=== PATIENT | male | born 1980 | race African-American/Black ===

== ENCOUNTER 2025-02-08 19:14 | Inpatient (IN) | payer MEDICARE, MEDICAID ==
[~2025-02-08] VITALS: Ht 170.2 cm; Wt 122.2 kg
[~2025-02-08 19:14] MED LIST: ATEN-73 PO; DIVA-159 PO; FAMO20 PO; GEMF600T PO; LURA80TA2 PO; SIMV-260 PO; TAMS0.4C94 PO; TOPI-257 PO
[2025-02-08 19:45] LABS: COVID AG,FIA SOURCE NASAL SWAB
[2025-02-08 19:47] LABS: BASOPHILS % (AUTO) 0.6 % (0.0-2.0); EOSINOPHILS % (AUTO) 1.9 % (1.0-6.0); HEMATOCRIT 41.3 % (41-53); HEMOGLOBIN 14.1 g/dL (13.5-17.5); LYMPHOCYTES # (AUTO) 2.4 K/uL (1.0-4.8); LYMPHOCYTES % (AUTO) 23.1 % (22.0-44.0); MEAN CORPUSCULAR HEMOGLOBIN 26.6 pg (26.0-34.0); MEAN CORPUSCULAR HGB CONC 34.1 G/dL (31.0-37.0); MEAN CORPUSCULAR VOLUME 78 fL (80-100); MONOCYTES # (AUTO) 0.5 K/uL (0.1-1.0); MONOCYTES % (AUTO) 5.3 % (2.0-9.0); NEUTROPHILS # (AUTO) 7.1 K/uL (1.8-7.7); NEUTROPHILS % (AUTO) 69.1 % (40.0-70.0); PLATELET COUNT (AUTO) 294 K/uL (150-450); RED BLOOD CELL COUNT(AUTO) 5.29 MIL/uL (4.50-5.90); RED CELL DISTRIBUTION WIDTH 13.8 % (11.5-14.5); WHITE BLOOD COUNT (AUTO) 10.3 K/uL (4.5-11.0)
[2025-02-08 19:57] LABS: ANION GAP 11 mmol/L (8-16); CALCIUM, TOTAL 8.9 mg/dL (8.8-10.5); CARBON DIOXIDE 23 mmol/L (22-29); CHLORIDE 104 mmol/L (98-107); CREATININE 1.23 mg/dL (0.60-1.30); GLOMERULAR FILTR. RATE CALC > 60 mL/min (>60); GLUCOSE,RANDOM 127 mg/dL (70-110); POTASSIUM 4.1 mmol/L (3.5-5.1); SODIUM SERUM 138 mmol/L (136-145); UREA NITROGEN, BLOOD 12 mg/dL (7-18)
[2025-02-08 20:04] LABS: SARS-COV2 (COVID) ANTIGEN,FIA Negative (Negative)
[2025-02-08 20:26] LABS: ALCOHOL, URINE DRUG SCREEN NEGATIVE (NEGATIVE); AMPHET/METH SCREEN,URINE NEGATIVE (NEGATIVE); BARBITURATE SCREEN, URINE NEGATIVE (NEGATIVE); BENZODIAZEPINES SCREEN,URINE NEGATIVE (NEGATIVE); CANNABINOID SCREEN,URINE NEGATIVE (NEGATIVE); COCAINE SCREEN,URINE NEGATIVE (NEGATIVE); METHADONE SCREEN, URINE NEGATIVE (NEGATIVE); OPIATE SCREEN,URINE NEGATIVE (NEGATIVE); PHENCYCLIDINE SCREEN,URINE NEGATIVE (NEGATIVE)
[2025-02-08] MEDS: OLANZapine 10 MG TABLET PO ONE (20:57)
[2025-02-08] MEDS: DiphenhydrAMINE HCL 25 MG CAPSULE PO ONE (20:57)
[2025-02-08] MEDS ORDERED: haloperidoL 5 MG TABLET PO PRN (21:00)
[2025-02-09 17:35] VITALS: RESP 18
[2025-02-09] MEDS: SIMVASTATIN 20 MG TABLET PO SCH (20:45)
[2025-02-09 21:32] VITALS: BP 138/82; PULSE 77; RESP 20; TEMP 97.3
[2025-02-10] MEDS: MetFORMIN HCL 500 MG TABLET PO SCH (06:55)
[2025-02-10] MEDS: gemfibroziL 600 MG TABLET PO SCH (06:55)
[2025-02-10] MEDS ORDERED: ALBUTEROL SULFATE HFA 90 MCG/PUFF 8 GM INHALER IH PRN (08:30)
[2025-02-10] MEDS ORDERED: LOPERAMIDE HCL 2 MG CAPSULE PO PRN (08:30)
[2025-02-10] MEDS ORDERED: IBUPROFEN 600 MG TABLET PO PRN (08:30)
[2025-02-10] MEDS ORDERED: ONDANSETRON 4 MG TABLET PO PRN (08:30)
[2025-02-10] MEDS ORDERED: CloNIDine HCL 0.1 MG TABLET PO PRN (08:30)
[2025-02-10] MEDS ORDERED: DOCUSATE SODIUM 100 MG CAPSULE PO PRN (08:30)
[2025-02-10] MEDS ORDERED: MAGNESIUM HYDROXIDE SUSPENSION 30 ML UDCUP PO PRN (08:30)
[2025-02-10] MEDS ORDERED: ACETAMINOPHEN 325 MG TABLET PO PRN (08:30)
[2025-02-10] MEDS ORDERED: OMEPRAZOLE 20 MG CAPSULE PO PRN (08:30)
[2025-02-10] MEDS ORDERED: MAG HYDROX/ALUMINUM HYD/SIMETH ES 30 ML SUSPENSION UDCUP PO PRN (08:30)
[2025-02-10] MEDS ORDERED: PETROLATUM,WHITE 28 GM JELLY TP PRN (08:30)
[2025-02-10] MEDS ORDERED: BACITRACIN 28 GM OINTMENT TP PRN (08:30)
[2025-02-10 09:16] VITALS: RESP 18
[2025-02-10] MEDS: AmLODIPine BESYLATE 10 MG TABLET PO SCH (09:41)
[2025-02-10] MEDS: FAMOTIDINE 20 MG TABLET PO SCH (09:41)
[2025-02-10] MEDS: atenoloL 25 MG TABLET PO SCH (09:42)
[2025-02-10] MEDS: DIVALPROEX SODIUM 500 MG DR TABLET PO SCH (13:39)
[2025-02-10] MEDS: LURASIDONE HCL 40 MG TABLET PO SCH (16:59)
[2025-02-10 20:26] VITALS: BP 138/97; PULSE 72; RESP 18; TEMP 97.9
[2025-02-10] MEDS: LORazepam 2 MG TABLET PO PRN (21:17)
[2025-02-11 08:00] VITALS: BP 133/87; PULSE 86; RESP 18; TEMP 97.9; O2SAT 98
[2025-02-11 20:19] VITALS: BP 148/98; PULSE 83; RESP 18; TEMP 97.4; O2SAT 98
[2025-02-12 08:01] VITALS: BP 122/88; PULSE 92; RESP 16; TEMP 98.6; O2SAT 96
[2025-02-12 21:54] VITALS: RESP 17; TEMP 98
[2025-02-13 08:00] VITALS: BP 136/80; PULSE 91; RESP 16; TEMP 97.4; O2SAT 98
[2025-02-13 10:35] VITALS: BP 136/80; PULSE 91; RESP 16; TEMP 97.4; O2SAT 98
[2025-02-13 20:46] VITALS: RESP 16
[2025-02-14 08:25] VITALS: BP 116/91; PULSE 93; RESP 17; TEMP 97.1; O2SAT 97
[2025-02-14 21:24] VITALS: BP 136/92; PULSE 78; RESP 18; TEMP 97.8; O2SAT 99
[2025-02-15 08:00] VITALS: BP 150/85; PULSE 64; RESP 18; TEMP 97.8; O2SAT 98
[2025-02-15 21:31] VITALS: BP 136/90; PULSE 77; RESP 18; TEMP 98.2; O2SAT 98
[2025-02-16 08:00] VITALS: BP 135/82; PULSE 88; RESP 18; TEMP 98.3; O2SAT 98
[2025-02-16 20:20] VITALS: BP 139/39; PULSE 92; TEMP 97.9
[2025-02-17 09:16] VITALS: BP 136/87; PULSE 100; RESP 18; TEMP 98.2; O2SAT 100
[2025-02-17 21:18] VITALS: BP 137/90; PULSE 87; RESP 17; TEMP 97; O2SAT 98
[2025-02-18 08:15] VITALS: BP 146/109; PULSE 100; RESP 18; TEMP 97.4; O2SAT 100
[2025-02-18] MEDS: DIVALPROEX SODIUM 500 MG DR TABLET PO SCH ×2 (13:30→20:43)
[2025-02-18] MEDS: RisperiDONE 2 MG TABLET PO SCH (14:21)
[2025-02-18] MEDS: LURASIDONE HCL 20 MG TABLET PO SCH (17:29)
[2025-02-18 20:12] VITALS: RESP 17
[2025-02-18] MEDS: ZOLPIDEM TARTRATE 10 MG TABLET PO PRN (20:45)
[2025-02-19 11:07] VITALS: BP 138/88; PULSE 101; RESP 18; TEMP 97.8; O2SAT 98
[2025-02-19 20:58] VITALS: BP 135/85; PULSE 96; RESP 18; TEMP 97.7; O2SAT 98
[2025-02-20 09:00] VITALS: BP 150/89; PULSE 99; RESP 17; TEMP 97.8; O2SAT 99
[2025-02-20 20:27] VITALS: BP 131/81; PULSE 90; RESP 17; TEMP 98.1; O2SAT 98
[2025-02-20 22:12] VITALS: BP 131/81; PULSE 90; RESP 17; TEMP 98.1; O2SAT 93
[2025-02-21 08:17] VITALS: BP 135/91; PULSE 96; RESP 18; TEMP 97.8; O2SAT 98
[2025-02-21 20:32] VITALS: BP 138/82; PULSE 84; RESP 17; TEMP 97.8; O2SAT 97
[2025-02-22 08:00] VITALS: BP 131/86; PULSE 97; RESP 18; TEMP 97.9; O2SAT 98
[2025-02-22 22:27] VITALS: BP 141/80; PULSE 89; RESP 18; TEMP 98.4; O2SAT 100
[2025-02-23 09:09] VITALS: BP 133/85; PULSE 99; RESP 19; TEMP 98.1; O2SAT 100
[2025-02-24 09:55] VITALS: BP 130/85; PULSE 98; RESP 18; TEMP 98.3; O2SAT 99
[2025-02-24 21:24] VITALS: RESP 17
[2025-02-25 08:13] VITALS: BP 129/85; PULSE 99; RESP 18; TEMP 98.2; O2SAT 90
[2025-02-25] MEDS: RisperiDONE ER SUSPENSION 125 MG/0.35 ML PRE-FILLED SYRINGE SQ SCH (13:42)
[2025-02-25 20:25] VITALS: BP 121/72; PULSE 84; RESP 17; TEMP 98.2; O2SAT 98
[2025-02-26 08:36] VITALS: BP 121/78; PULSE 93; RESP 18; TEMP 98.1; O2SAT 99
[2025-02-26] MEDS ORDERED: FAMO20 PO (11:18)
[2025-02-26] MEDS ORDERED: METF-1211 PO (11:18)
[2025-02-26] MEDS ORDERED: SIMV-43 PO (11:18)
[2025-02-26] MEDS ORDERED: ATEN-73 PO (11:18)
[2025-02-26] MEDS ORDERED: DIVA-112 PO (11:18)
[2025-02-26] MEDS ORDERED: RISP125S SQ (11:18)
[2025-02-26] MEDS ORDERED: GEMF600T89 PO (11:18)
[2025-02-26] MEDS ORDERED: AMLO-258 PO (11:18)
== END 2025-02-26 15:17 | disposition home or self-care (01) | DRG 885 ==
LOC: EMS 19:14 → B2S 02-09 15:31
PROVIDERS: ADMIT Psychiatry & Neurology Psychiatry; ATTEND Psychiatry & Neurology Psychiatry
PROC: GZHZZZZ Group Psychotherapy (ICD-10-PCS; principal; 2025-02-11)
PROC: GZ51ZZZ Individual Psychotherapy, Behavioral (ICD-10-PCS; 2025-02-11)
PROC: GZ56ZZZ Individual Psychotherapy, Supportive (ICD-10-PCS; 2025-02-11)
PROC: GZ58ZZZ Individual Psychotherapy, Cognitive-Behavioral (ICD-10-PCS; 2025-02-11)
DX: F20.0 Paranoid schizophrenia (principal); Z68.41 Body mass index [BMI] 40.0-44.9, adult; I10 Essential (primary) hypertension; K59.00 Constipation, unspecified; G47.00 Insomnia, unspecified; E66.9 Obesity, unspecified; K21.9 Gastro-esophageal reflux disease without esophagitis; E78.5 Hyperlipidemia, unspecified; E11.9 Type 2 diabetes mellitus without complications; J45.909 Unspecified asthma, uncomplicated; S31.139A Puncture wound of abdominal wall without foreign body, unspecified quadrant without penetration into peritoneal cavity, initial encounter; Z79.899 Other long term (current) drug therapy; Z91.010 Allergy to peanuts; Z91.148 Patient's other noncompliance with medication regimen for other reason; X58.XXXA Exposure to other specified factors, initial encounter; Y93.89 Activity, other specified; Y92.89 Other specified places as the place of occurrence of the external cause; Y99.8 Other external cause status
CPT/HCPCS: 80048; 80164; 80307; 83036; 85025; 99291; G0480